=== PATIENT | male | born 1990 | race Caucasian/White ===

== ENCOUNTER 2018-12-29 20:55 | Inpatient (IN) | payer MEDICARE, MEDICAID ==
[~2018-12-29] VITALS: Ht 182.9 cm; Wt 111.3 kg
[~2018-12-29 20:55] MED LIST: HALO50VI4 IM; HALO5TAB2 PO; INSU100V SQ; METF500T20 PO; PROZ10 PO; QUET200T PO
[2018-12-29] MEDS ORDERED: HALOPERIDOL 5 MG TABLET PO PRN (22:15)
[2018-12-29] MEDS ORDERED: DEXTROSE 50%-WATER 25 GM/50 ML SYRINGE IVP PRN (22:15)
[2018-12-29] MEDS: HALOPERIDOL 10 MG TABLET PO SCH (22:15)
[2018-12-29] MEDS: ZOLPIDEM TARTRATE 10 MG TABLET PO PRN (22:46)
[2018-12-29 22:54] VITALS: BP 119/69
[2018-12-30] MEDS: MetFORMIN HCL 500 MG TABLET PO SCH ×2 (06:55→16:13)
[2018-12-30] MEDS: GlipiZIDE 10 MG TABLET PO SCH ×2 (06:55→16:12)
[2018-12-30] MEDS: INSULIN LISPRO 100 UNITS/ML SQ PRN ×5 (07:02→20:16)
[2018-12-30] MEDS: HALOPERIDOL 2 MG TABLET PO SCH ×3 (08:46→16:13)
[2018-12-30] MEDS: TRIHEXYPHENIDYL HCL 2 MG TABLET PO SCH ×3 (08:46→16:11)
[2018-12-30 09:10] LABS: HEMOGLOBIN A1C 9.4 % (4.5-6.2)
[2018-12-30 10:15] LABS: CHOL/HDL RATIO 8.1 (4.2-7.3)
[2018-12-30 10:25] VITALS: BP 123/75
[2018-12-30 12:00] LABS: GLUCOMETER DEV NAME(LOC) 3E.C; GLUCOSE,POINT OF CARE 140 MG/DL (70-110)
[2018-12-30] MEDS: LORazepam 2 MG TABLET PO PRN (16:13)
[2018-12-30 16:40] LABS: GLUCOMETER DEV NAME(LOC) 3E.C; GLUCOSE,POINT OF CARE 205 MG/DL (70-110)
[2018-12-30 17:10] VITALS: BP 118/65
[2018-12-30 20:01] LABS: GLUCOMETER DEV NAME(LOC) 3E.C; GLUCOSE,POINT OF CARE 187 MG/DL (70-110)
[2018-12-30] MEDS: ZOLPIDEM TARTRATE 10 MG TABLET PO PRN (20:04)
[2018-12-30] MEDS: HALOPERIDOL 10 MG TABLET PO SCH (20:04)
[2018-12-30 21:45] VITALS: BP 123/71
[2018-12-31 06:41] LABS: GLUCOMETER DEV NAME(LOC) 3E.C; GLUCOSE,POINT OF CARE 210 MG/DL (70-110)
[2018-12-31] MEDS: MetFORMIN HCL 500 MG TABLET PO SCH ×2 (06:44→17:09)
[2018-12-31] MEDS: GlipiZIDE 10 MG TABLET PO SCH ×2 (06:44→17:08)
[2018-12-31] MEDS: INSULIN LISPRO 100 UNITS/ML SQ PRN ×3 (06:45→20:34)
[2018-12-31] MEDS ORDERED: PNEUMOCOCCAL VACCINE POLYVALENT 0.5 ML VIAL [PPSV23] IM ONE (07:15)
[2018-12-31] MEDS: TRIHEXYPHENIDYL HCL 2 MG TABLET PO SCH ×3 (07:49→17:08)
[2018-12-31] MEDS: HALOPERIDOL 2 MG TABLET PO SCH ×3 (07:49→17:08)
[2018-12-31 08:57] VITALS: BP 90/55
[2018-12-31 12:50] LABS: GLUCOMETER DEV NAME(LOC) 3E.C; GLUCOSE,POINT OF CARE 179 MG/DL (70-110)
[2018-12-31] MEDS: LORazepam 2 MG TABLET PO PRN ×3 (14:03→23:38)
[2018-12-31 16:30] VITALS: BP 110/68
[2018-12-31 17:11] LABS: GLUCOMETER DEV NAME(LOC) 3E.C; GLUCOSE,POINT OF CARE 134 MG/DL (70-110)
[2018-12-31 20:11] LABS: GLUCOMETER DEV NAME(LOC) 3E.C; GLUCOSE,POINT OF CARE 244 MG/DL (70-110)
[2018-12-31] MEDS: ZOLPIDEM TARTRATE 10 MG TABLET PO PRN (20:32)
[2018-12-31] MEDS: HALOPERIDOL 10 MG TABLET PO SCH (20:33)
[2019-01-01 06:36] LABS: GLUCOMETER DEV NAME(LOC) 3E.C; GLUCOSE,POINT OF CARE 227 MG/DL (70-110)
[2019-01-01] MEDS: MetFORMIN HCL 500 MG TABLET PO SCH ×2 (06:42→16:35)
[2019-01-01] MEDS: GlipiZIDE 10 MG TABLET PO SCH ×2 (06:42→16:35)
[2019-01-01] MEDS: INSULIN LISPRO 100 UNITS/ML SQ PRN ×4 (06:44→22:32)
[2019-01-01 07:49] LABS: ALANINE AMINOTRANSFERASE 114 U/L (12-78); ALBUMIN 3.8 g/dL (3.4-5.0); ALKALINE PHOSPHATASE 74 U/L (46-116); ANION GAP 9 mmol/L (8-16); ASPARTATE AMINOTRANSFERASE 51 U/L (15-37); BILIRUBIN,TOTAL 0.7 mg/dL (0.1-1.0); CALCIUM, TOTAL 8.7 mg/dL (8.8-10.5); CARBON DIOXIDE 29 mmol/L (22-29); CHLORIDE 101 mmol/L (98-107); CREATINE KINASE, TOTAL ONLY 112 U/L (39-308); CREATININE 0.86 mg/dL (0.60-1.30); GLOMERULAR FILTR. RATE CALC > 60 mL/min (>60); GLUCOSE,RANDOM 251 mg/dL (70-110); POTASSIUM 3.9 mmol/L (3.5-5.1); SODIUM SERUM 139 mmol/L (136-145); TOTAL PROTEIN, SERUM 6.2 g/dL (6.4-8.2); UREA NITROGEN, BLOOD 8 mg/dL (7-18)
[2019-01-01 08:53] VITALS: BP 95/69
[2019-01-01] MEDS: HALOPERIDOL 2 MG TABLET PO SCH ×3 (09:06→16:35)
[2019-01-01] MEDS: MAGNESIUM OXIDE 400 MG TABLET PO SCH ×2 (09:06→16:35)
[2019-01-01] MEDS: TRIHEXYPHENIDYL HCL 2 MG TABLET PO SCH ×3 (09:06→16:35)
[2019-01-01] MEDS: LinaGLIPtin 5 MG TABLET PO SCH (09:08)
[2019-01-01 11:05] LABS: GLUCOMETER DEV NAME(LOC) 3E.C; GLUCOSE,POINT OF CARE 236 MG/DL (70-110)
[2019-01-01 13:06] LABS: GLUCOMETER DEV NAME(LOC) 3E.C; GLUCOSE,POINT OF CARE 146 MG/DL (70-110)
[2019-01-01 17:20] VITALS: BP 101/75
[2019-01-01] MEDS ORDERED: TRIH2TAB3 PO (18:18)
[2019-01-01] MEDS ORDERED: HALO10 PO (18:18)
[2019-01-01] MEDS ORDERED: HALO2 PO (18:18)
[2019-01-01] MEDS: HALOPERIDOL 10 MG TABLET PO SCH (20:20)
[2019-01-01] MEDS: ZOLPIDEM TARTRATE 10 MG TABLET PO PRN (20:20)
[2019-01-01 22:21] LABS: GLUCOMETER DEV NAME(LOC) 3E.C; GLUCOSE,POINT OF CARE 175 MG/DL (70-110)
[2019-01-02 04:22] VITALS: BP 92/71
[2019-01-02 06:26] LABS: GLUCOMETER DEV NAME(LOC) 3E.C; GLUCOSE,POINT OF CARE 255 MG/DL (70-110)
[2019-01-02] MEDS: GlipiZIDE 10 MG TABLET PO SCH (06:55)
[2019-01-02] MEDS: MetFORMIN HCL 500 MG TABLET PO SCH (06:56)
[2019-01-02] MEDS: INSULIN LISPRO 100 UNITS/ML SQ PRN ×2 (06:57→11:33)
[2019-01-02] MEDS: TRIHEXYPHENIDYL HCL 2 MG TABLET PO SCH ×2 (09:54→12:42)
[2019-01-02] MEDS: LinaGLIPtin 5 MG TABLET PO SCH (09:54)
[2019-01-02] MEDS: HALOPERIDOL 2 MG TABLET PO SCH ×2 (09:55→12:49)
[2019-01-02] MEDS: MAGNESIUM OXIDE 400 MG TABLET PO SCH (09:56)
[2019-01-02] MEDS ORDERED: GLIP10 PO (11:08)
[2019-01-02] MEDS ORDERED: LINA5TAB PO (11:09)
[2019-01-02 11:20] LABS: GLUCOMETER DEV NAME(LOC) 3E.C; GLUCOSE,POINT OF CARE 120 MG/DL (70-110)
[2019-01-02] MEDS ORDERED: MAGN200T5 PO (11:39)
[2019-01-02] MEDS ORDERED: METF-960 PO (11:42)
[2019-01-03 10:06] LABS: GLUCOMETER DEV NAME(LOC) 3E.C; GLUCOSE,POINT OF CARE 153 MG/DL (70-110)
== END 2019-01-02 13:20 | disposition home or self-care (01) | DRG 885 ==
LOC: 3EC 21:00
PROVIDERS: ADMIT Psychiatry & Neurology Psychiatry; ATTEND Psychiatry & Neurology Psychiatry
DX: F25.0 Schizoaffective disorder, bipolar type (principal); E11.10 Type 2 diabetes mellitus with ketoacidosis without coma; R45.851 Suicidal ideations; Z91.19 Patient's noncompliance with other medical treatment and regimen; E83.42 Hypomagnesemia; F12.90 Cannabis use, unspecified, uncomplicated; F14.90 Cocaine use, unspecified, uncomplicated; F15.90 Other stimulant use, unspecified, uncomplicated; R31.9 Hematuria, unspecified
CPT/HCPCS: 80074; 83036; 83735; 86592; 87081